=== PATIENT | male | born 1960 | race Caucasian/White ===

== ENCOUNTER 2022-08-07 17:43 | Inpatient (IN) | payer OTHER ==
[~2022-08-07] VITALS: Ht 180.3 cm; Wt 72.6 kg
[~2022-08-07 17:43] MED LIST: AMLO10TA PO; ATEN25TA7 PO; BUPR300T70 PO; CIPR500T4 PO; HYDR-3229 PO; HYDR-5191 PO; HYDR50CA1 PO; METR500T1 PO; QUET300T1 PO
[2022-08-07 17:52] VITALS: BP 199/95
--- NOTE | 2022-08-07 17:57 | NUR ---
PT W/C ASSISTED TO BED 10. REPORTED TO ROSA BUNCH.
[2022-08-07] MEDS ORDERED: LIDOCAINE/EPI MPF 1%1:200000 30 ML VIAL INJ ONE (18:55)
[2022-08-07] MEDS ORDERED: NACL 0.9% 1,000 ML IV ONE (18:55)
[2022-08-07] MEDS ORDERED: LORazepam 1 MG TAB PO ONE (18:55)
--- NOTE | 2022-08-07 19:19 | NUR ---
Report given to ALIVIA Montague for transfer of care.
[2022-08-07 19:27] LABS: BASOPHILS % (AUTO) 0.5 % (0.0-2.0); EOSINOPHILS % (AUTO) 0.1 % (0.0-4.0); HEMATOCRIT 31.5 % (36-52); HEMOGLOBIN 11.3 g/dL (12.0-18.0); LYMPHOCYTES # (AUTO) 0.4 K/uL (2.0-11.5); LYMPHOCYTES % (AUTO) 4.5 % (20.5-51.1); MEAN CORPUSCULAR HEMOGLOBIN 31 pg (27-31); MEAN CORPUSCULAR HGB CONC 36 g/dL (33-37); MEAN CORPUSCULAR VOLUME 88.2 fL (80-94); MONOCYTES # (AUTO) 0.5 K/uL (0.8-1.0); MONOCYTES % (AUTO) 5.8 % (1.7-9.3); NEUTROPHILS # (AUTO) 7.9 K/uL (1.8-7.7); NEUTROPHILS % (AUTO) 89.1 % (42.2-75.2); PLATELET COUNT (AUTO) 71 K/uL (140-450); RED BLOOD CELL COUNT(AUTO) 3.58 MIL/uL (4.20-6.10); WHITE BLOOD COUNT (AUTO) 8.9 K/uL (4.8-10.8)
--- NOTE | 2022-08-07 19:31 | NUR ---
PT TAKEN BY GLORIA TO [facility] FOR WAIT AND RETURN CT EXAM
[2022-08-07 19:46] LABS: PROTHROMBIN TIME 9.7 secs (10.8-13.4)
[2022-08-07 19:55] LABS: ALBUMIN 4.6 g/dL (3.4-5.0); ANION GAP 18.8 (8-16); ASPARTATE AMINOTRANSFERASE 60 U/L (15-37); CARBON DIOXIDE 28.3 mmol/L (21-32); CHLORIDE 90 mmol/L (98-107); CREATININE 2.4 mg/dL (0.6-1.3); GFR ARICAN-AMERICAN 35 mL/min (>90); GLUCOSE 137 mg/dL (74-106); POTASSIUM 3.1 mmol/L (3.5-5.1); SODIUM SERUM 134 mmol/L (136-145); TOTAL BILIRUBIN 1.7 mg/dL (0.0-1.0); UREA NITROGEN, BLOOD 34 mg/dL (7-18)
--- NOTE | 2022-08-07 21:47 | NUR ---
PT RETURN FROM [facility]
--- NOTE | 2022-08-07 21:54 | NUR ---
Patient back from CT, ER physician at bedside.
[2022-08-07] MEDS ORDERED: LORazepam 1 MG TAB ONE (21:58)
--- NOTE | 2022-08-07 22:30 | NUR ---
Patient lying in bed, A/Ox4, chest rise and fall symmetrical, no c/o pain or s/s of discomfort, patient on monitor.
[2022-08-07 22:52] LABS: CANNABINOID, URINE POSITIVE ng/mL (NEG <=50)
[2022-08-07 22:53] LABS: BARBITURATE, URINE NEGATIVE ng/ml (NEG <=200); BENZODIAZEPINE, URINE NEGATIVE ng/mL (NEG <=200); COCAINE, URINE POSITIVE ng/mL (NEG <=300); OPIATE, URINE NEGATIVE ng/mL (NEG <=2000); PHENCYCLIDINE SCREEN,URINE NEGATIVE ng/mL (NEG <=25)
--- NOTE | 2022-08-07 23:40 | NUR ---
Patient lying in bed, A/Ox4, chest rise and fall symmetrical, no c/o pain or s/s of discomfort, patient on monitor.
--- NOTE | 2022-08-07 23:57 | NUR ---
X-Ray at bedside.
[2022-08-08] MEDS ORDERED: LORazepam 2 MG/ML VIAL IVP PRN (01:10)
[2022-08-08] MEDS ORDERED: ACETAMINOPHEN 325 MG TAB PO PRN (01:10)
[2022-08-08] MEDS ORDERED: HYDROcodone/APAP 5/325 MG 1 TAB TAB PO PRN (01:10)
[2022-08-08] MEDS ORDERED: ONDANSETRON 4 MG/2 ML VIAL IVP PRN (01:10)
--- NOTE | 2022-08-08 01:30 | NUR ---
Patient lying in bed, A/Ox4, chest rise and fall symmetrical, no c/o pain or s/s of discomfort, patient on monitor.
[2022-08-08] MEDS: NACL 0.9% 1,000 ML IV SCH ×3 (01:47→18:53)
--- NOTE | 2022-08-08 01:58 | NUR ---
Dr. Burgos verbally informed via telephone of patient's last vital signs. Dr. Burgos verbalized understanding, order given for Amlodipine 10mg PO daily, readback complete.
[2022-08-08] MEDS ORDERED: amLODIPine 5 MG TAB PO SCH (02:20)
[2022-08-08] MEDS ORDERED: CLONIDINE HYDROCHLORIDE 0.1 MG TAB PO ONE (02:45)
--- NOTE | 2022-08-08 02:55 | NUR ---
Patient lying in bed, A/Ox4, chest rise and fall symmetrical, no c/o pain or s/s of discomfort, patient on monitor.
--- NOTE | 2022-08-08 04:20 | NUR ---
Patient lying in bed, A/Ox4, chest rise and fall symmetrical, no c/o pain or s/s of discomfort, patient on monitor.
--- NOTE | 2022-08-08 05:59 | NUR ---
Patient lying in bed, A/Ox4, chest rise and fall symmetrical, no c/o pain or s/s of discomfort, patient on monitor.
--- NOTE | 2022-08-08 06:20 | NUR ---
Patient lying in bed, A/Ox4, chest rise and fall symmetrical, no c/o pain or s/s of discomfort, patient on monitor.
--- NOTE | 2022-08-08 07:24 | NUR ---
Assumed care of pt at this time.
--- NOTE | 2022-08-08 07:27 | NUR ---
Pt report given to Marce BUNCH. Marce BUNCH verbalized understanding of report, no further questions.
--- NOTE | 2022-08-08 07:39 | NUR ---
Pt taken to Telemetry be 107 A on gurney and ACLS protocol on monitor with naeem Zuñiga. VSS. Pt given update on plan of care.
--- NOTE | 2022-08-08 07:45 | NUR ---
[facility]mi [facility].
--- NOTE | 2022-08-08 07:53 | NUR ---
Patient will be admitted to care of Dr Rivera. Admited to Telemetry. Will go to room 107 A. Belongings list completed. Report to Audrey BUNCH.
[2022-08-08 08:00] VITALS: BP 122/81
--- NOTE | 2022-08-08 08:30 | NUR ---
RECEIVED PATIENT FROM ED VIA [facility] AT 0750. VSS. AFEBRILE. RESPIRATIONS EVEN AND UNLABORED. BRUISING TO FACE AND RIGHT HIP NOTED. LACERATION TO FOREHEAD NOTED WELL. PATIENT HAD A FALL PRIOR TO ADMISSION. 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 PATIENT ALSO STATES HE IS UNABLE TO AMBULATE. SR ON TELE MONITOR. IV INTACT AND PATENT WITH NO REDNESS OR IRRITATION TO SITE. DENIES PAIN AT THIS TIME.ORIENTED TO ROOM AND CALL LIGHT SYSTEM. WILL CONTINUE TO MONITOR FOR SAFETY. Joel ROBBINS RN.
[2022-08-08] MEDS: amLODIPine 5 MG TAB PO SCH (08:41)
[2022-08-08] MEDS: ENOXAPARIN 40 MG/0.4 ML SYR SUBQ SCH (08:42)
[2022-08-08] MEDS ORDERED: POTASSIUM CHLORIDE 10 MEQ TABER PO SCH (10:12)
[2022-08-08 13:38] VITALS: BP 189/114
--- NOTE | 2022-08-08 13:39 | NUR ---
PATIENT HAS ELEVATED BLOOD PRESSURE OF 189/114 WITH HEART RATE OF 103. PATIENT IS ALSO COMPLAINING OF PAIN AT 9/10 IN HIS NECK AND RIGHT HIP. PATIENT WAS MEDICATED WITH NORCO APPROXIMATELY 1 HOUR AGO AND STATE PAIN HAS NOT BEEN RELIEVED. DR. PRINCE CALLED TO BE NOTIFIED. WAITING FOR CALL BACK FROM DR. PRINCE. Joel ROBBINS RN.
[2022-08-08] MEDS: MORPHINE SULFATE 4 MG/ML SYR IVP PRN ×2 (14:09→23:06)
[2022-08-08] MEDS: CLONIDINE HYDROCHLORIDE 0.1 MG TAB PO PRN (14:10)
--- NOTE | 2022-08-08 14:17 | NUR ---
CLONIDINE 0.1MG PO AND MORPHINE 4MG IV GIVEN ORDERED FOR ELEVATED BLOOD PRESSURE AND PAIN OF 06/19. Joel ROBBINS RN.
[2022-08-08 15:20] VITALS: BP 183/111
--- NOTE | 2022-08-08 15:22 | NUR ---
PATIENT BLOOD PRESSURE RECHECKED AFTER CLONIDINE 0.1MG PO AND IS 183/11 WITH HEART RATE OF 97. DR. PRINCE CALLED AND NOTIFIED. ORDERS GIVEN FOR LABETALOL 20MG IV EVERY 2 HOURS FOR SBP >160 PRN. WILL CARRY OUT NEW ORDERS. Joel ROBBINS RN.
[2022-08-08] MEDS ORDERED: LABETALOL 20 MG/4 ML VIAL IVP ONE (16:01)
[2022-08-08] MEDS: LABETALOL 100 MG/20 ML VIAL IV PRN (16:08)
[2022-08-08 16:47] VITALS: BP 127/76
[2022-08-08 20:00] VITALS: BP 148/95
[2022-08-08] MEDS: METOPROLOL 25 MG TAB PO SCH (23:03)
[2022-08-08] MEDS: QUEtiapine FUMARATE 100 MG TAB PO SCH (23:04)
[2022-08-08] MEDS: buPROPion 150 MG TABER PO SCH (23:05)
[2022-08-09] VITALS: BP 159/80
--- NOTE | 2022-08-09 00:35 | NUR ---
PATIENT AWAKE ALERT TEMP 96.9 ON ROOM AIR PATIENT IS A S/P FALL FALL IN STREET. PATIENT IS HOMLESS. ON ROOM AIR 98% SAT. HAS NS INFUSING AT 80 HOUR NS. PATIENT IS BED REST B/P 148/95 TOOK HIS B/P MEDS.PATIENT IS + FOR COCAINE PATIENT HAS NO TEETH PATIENT C/O OF PAIN IN LOWER BACK MEDICATED WITH MORPHINE 4 MG IVP 2306.PATIENT STATES PAIN 8.NO OTHER C/O AT THIS TIME.HAS A 20 GA UPPER RIGHT ARM.
[2022-08-09 04:00] VITALS: BP 150/80
[2022-08-09 06:57] LABS: BASOPHILS # (AUTO) 0.1 K/uL (0.00-0.22); BASOPHILS % (AUTO) 0.9 % (0.0-2.0); EOSINOPHILS # (AUTO) 0.1 K/uL (0-0.4); EOSINOPHILS % (AUTO) 1.5 % (0.0-4.0); HEMATOCRIT 22.3 % (36-52); HEMOGLOBIN 7.9 g/dL (12.0-18.0); LYMPHOCYTES # (AUTO) 0.9 K/uL (2.0-11.5); LYMPHOCYTES % (AUTO) 16.5 % (20.5-51.1); MEAN CORPUSCULAR HEMOGLOBIN 32 pg (27-31); MEAN CORPUSCULAR HGB CONC 35 g/dL (33-37); MONOCYTES # (AUTO) 0.5 K/uL (0.8-1.0); MONOCYTES % (AUTO) 8.6 % (1.7-9.3); NEUTROPHILS # (AUTO) 4.1 K/uL (1.8-7.7); NEUTROPHILS % (AUTO) 72.5 % (42.2-75.2); PLATELET COUNT (AUTO) 113 K/uL (140-450); RED BLOOD CELL COUNT(AUTO) 2.51 MIL/uL (4.20-6.10); RED CELL DISTRIBUTION WIDTH 13.3 % (11.6-13.7); WHITE BLOOD COUNT (AUTO) 5.7 K/uL (4.8-10.8)
--- NOTE | 2022-08-09 07:10 | NUR ---
RECIEVED REPORT FROM ENVIRONMENTAL CONFLICT MANAGER NURSE LETTY FOR CONTINUITY OF CARE. NO SIGNS OF DISTRESS OR LABORED BREATHING. PT IS A&OX1, ON RA STATING AT 96%. IV 20G RAC PATENT AND INTACT INFUSING NS @80ML/HR. PT HAS NO COMPLAINT OF PAIN AT THIS TIME. SKIN IS INTACT EXCEPT FOR A LACERATION ON FOREHEAD AND BRIDGE NOSE, BLACK EYES AND BRUISING ON R HIP AND BUTT CHEEK. LOW IN LOW POSITION, TWO SIDE RAILS UP, CALL LIGHT WITHIN REACH AND ALL SAFETY MEASURES MEET AT THIS TIME. WILL CONTINUE TO MONITOR.
[2022-08-09 07:45] LABS: ALBUMIN 2.9 g/dL (3.4-5.0); ANION GAP 12.9 (8-16); CARBON DIOXIDE 27.3 mmol/L (21-32); CREATININE 2.1 mg/dL (0.6-1.3); MAGNESIUM 2.3 mg/dL (1.8-2.4); POTASSIUM 3.2 mmol/L (3.5-5.1); TOTAL BILIRUBIN 0.6 mg/dL (0.0-1.0)
[2022-08-09 08:00] VITALS: BP 132/78
[2022-08-09] MEDS ORDERED: DEXTROSE 50% 50 ML SYR IVP PRN (08:20)
[2022-08-09] MEDS ORDERED: INSULIN LISPRO SLIDING SCALE 100 UNITS/ML VIAL SUBQ PRN (08:20)
[2022-08-09] MEDS ORDERED: POTASSIUM CHLORIDE 10 MEQ TABER PO SCH (09:00)
[2022-08-09] MEDS: amLODIPine 5 MG TAB PO SCH (09:00)
[2022-08-09] MEDS: METOPROLOL 25 MG TAB PO SCH (09:00)
[2022-08-09] MEDS: buPROPion 150 MG TABER PO SCH ×2 (09:00→20:28)
[2022-08-09] MEDS: ASPIRIN 81 MG TAB.CHEW PO SCH (09:00)
[2022-08-09] MEDS: ENOXAPARIN 40 MG/0.4 ML SYR SUBQ SCH (09:21)
[2022-08-09] MEDS ORDERED: LOSARTAN 25 MG TAB PO SCH (10:15)
--- NOTE | 2022-08-09 10:20 | NUR ---
PATIENT HAS BEEN SCREENED AND CATEGORIZED MODERATE NUTRITION RISK. PATIENT WILL BE SEEN WITHIN 3-5 DAYS OF ADMISSION. 08/08/22-08/13/22 REVIEWED BY HARLEEN VALENZUELA RD
--- NOTE | 2022-08-09 11:17 | NUR ---
P.T. NOTES P.T. EVAL COMPLETED; REFER TO EVAL FOR DETAILS.
[2022-08-09] MEDS ORDERED: BLOOD GLUCOSE MONITORING 1 DEV DEV FS SCH (11:30)
[2022-08-09 12:00] VITALS: BP_SYST 132; BP_DIAS 78; BP_DIAS 88
[2022-08-09 14:21] LABS: THYROID STIMULATING HORMONE 2.64 uIU/mL (0.34-3.74)
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
[2022-08-09 16:00] VITALS: BP 155/95
--- NOTE | 2022-08-09 19:25 | NUR ---
ENDORSED PT TO MATCHER LEATHER PARTS NURSE CLARA FOR CONTINUITY OF CARE.
--- NOTE | 2022-08-09 19:26 | NUR ---
RECD. RESTING IN BED, AWAKE, A/OX2. RESPIRATION EVEN AND UNLABORED. IV SALINE LOCK AT THE RIGHT AC G20, PATENT AND INTACT. NOTED MULTIPLE BRUISES IN THE BODY DUE TO FALLS, HEMATOMA ON THE NOSE AND FOREHEAD. SAFETY MEASURES ENFORCED. BED IN THE LOWEST POSITION, SIDE RAILS UP. DENIES PAIN 0/10.
[2022-08-09 20:00] VITALS: BP 159/98
[2022-08-09] MEDS: carvediloL 12.5 MG TAB PO SCH (20:28)
--- NOTE | 2022-08-09 20:28 | NUR ---
TRYING TO GET OUT OF BED, CLEANSED AND DIAPER PUT ON AND NEW GOWN. SCHEDULED MEDICATIONS ADMINISTERED WITH APPLE SAUCE, TOLERATED WELL.
[2022-08-09] MEDS: QUEtiapine FUMARATE 100 MG TAB PO SCH (20:29)
[2022-08-09] MEDS: CLONIDINE HYDROCHLORIDE 0.1 MG TAB PO PRN (23:16)
--- NOTE | 2022-08-09 23:16 | NUR ---
BP - 181/129, HR - 87, MEDICATED WITH CATAPRES PER MD ORDER.
[2022-08-10] VITALS: BP 163/122
--- NOTE | 2022-08-10 | NUR ---
Patient's Plan of Care was discussed and reviewed with YANELY HARTMANN
--- NOTE | 2022-08-10 00:30 | NUR ---
BP CHECKED - 163/122, HR -85. WILL GIVE ANOTHER MED PER MD ORDER.
[2022-08-10] MEDS: LABETALOL 100 MG/20 ML VIAL IV PRN ×3 (01:59→17:19)
--- NOTE | 2022-08-10 01:59 | NUR ---
BP CHECKED - 170/109, HR - 81. MEDICATED WITH LABETALOL PER MD ORDER BY CHARGE NURSE
--- NOTE | 2022-08-10 02:43 | NUR ---
BP CHECKED - 135/62, HR - 87. SLEEPING COMFORTABLY IN BED. RESPIRATION EVEN AND UNLABORED.
--- NOTE | 2022-08-10 03:30 | NUR ---
DIAPER CHANGED, REPOSITION IN BED FOR COMFORT.
[2022-08-10 04:00] VITALS: BP 157/95
--- NOTE | 2022-08-10 05:45 | NUR ---
TRYING TO GET OUT OF BED BY PUTTING BLE OUT OF THE BED. REPOSITIONED BACK IN BED.
--- NOTE | 2022-08-10 07:00 | NUR ---
CONDITION REMAIN STABLE. WILL ENDORSED TO AM SHIFT NURSE FOR CONTINUITY OF CARE.
--- NOTE | 2022-08-10 07:30 | NUR ---
RECEIVED REPORT FROM NIGHTSHIFT NURSECLARA. PT AWAKE AND ALERT. NO SOB OR RESPIRATORY DISTRESS. ON RA. PUREED DIET. RAC #20 SL, DRESSING C/D/I. PT INCONTINENT. NEEDS ALL MET AT THIS TIME. ALL ITEMS WITHIN REACH. ALL SAFETY MEASURES IN PLACE.
[2022-08-10 07:54] LABS: BASOPHILS % (AUTO) 0.5 % (0.0-2.0); EOSINOPHILS # (AUTO) 0.1 K/uL (0-0.4); EOSINOPHILS % (AUTO) 0.9 % (0.0-4.0); HEMATOCRIT 25.6 % (36-52); LYMPHOCYTES # (AUTO) 0.6 K/uL (2.0-11.5); MEAN CORPUSCULAR HEMOGLOBIN 32 pg (27-31); MEAN CORPUSCULAR HGB CONC 35 g/dL (33-37); MEAN CORPUSCULAR VOLUME 89.5 fL (80-94); MONOCYTES # (AUTO) 0.7 K/uL (0.8-1.0); MONOCYTES % (AUTO) 8.1 % (1.7-9.3); NEUTROPHILS # (AUTO) 6.7 K/uL (1.8-7.7); NEUTROPHILS % (AUTO) 82.5 % (42.2-75.2); PLATELET COUNT (AUTO) 138 K/uL (140-450); RED BLOOD CELL COUNT(AUTO) 2.86 MIL/uL (4.20-6.10); RED CELL DISTRIBUTION WIDTH 13.1 % (11.6-13.7); WHITE BLOOD COUNT (AUTO) 8.1 K/uL (4.8-10.8)
[2022-08-10 08:00] VITALS: BP 170/103
[2022-08-10 08:29] LABS: ALBUMIN 3.3 g/dL (3.4-5.0); ANION GAP 11.5 (8-16); CARBON DIOXIDE 28.8 mmol/L (21-32); CREATININE 2.3 mg/dL (0.6-1.3); POTASSIUM 3.3 mmol/L (3.5-5.1); TOTAL BILIRUBIN 0.8 mg/dL (0.0-1.0)
[2022-08-10] MEDS: ENOXAPARIN 40 MG/0.4 ML SYR SUBQ SCH (08:45)
[2022-08-10] MEDS: amLODIPine 5 MG TAB PO SCH (08:46)
[2022-08-10] MEDS: ASPIRIN 81 MG TAB.CHEW PO SCH (08:46)
[2022-08-10] MEDS: carvediloL 12.5 MG TAB PO SCH ×2 (08:46→20:36)
[2022-08-10] MEDS: buPROPion 150 MG TABER PO SCH ×2 (08:46→20:37)
--- NOTE | 2022-08-10 09:45 | NUR ---
BP RECHECK 139/89, HR 60. ATTEMPTED TO FEED PT X2. PT ABLE TO TAKE FEW BITES OF FOOD WITHOUT SIGNS OF ASPIRATION. ABLE TO STATE NAME AND . NO SLURRING NOTED. DENIES PAIN. NEEDS ALL MET AT THIS TIME. ALL SAFETY MEASURES IN PLACE.
[2022-08-10 12:00] VITALS: BP 131/90
[2022-08-10] MEDS ORDERED: POTASSIUM CHLORIDE 10 MEQ TABER PO SCH (13:30)
[2022-08-10 16:00] VITALS: BP 172/99
[2022-08-10] MEDS: MORPHINE SULFATE 4 MG/ML SYR IVP PRN (18:04)
--- NOTE | 2022-08-10 19:29 | NUR ---
REPORT GIVEN TO NIGHTSGAFT NURSEELVIRA FOR CONTINUITY OF CARE.
--- NOTE | 2022-08-10 19:30 | NUR ---
RECEIVED REPORT FROM MORNING SHIFT NURSE. PT IS AOX2, BEDREST, ABLE TO VERBALIZE NEEDS AND ABLE TO FOLLOW COMMANDS. PT IS ON ROOM AIR AND ON PUREE DIET. PT HAS BEDSIDE URINAL AND HAS IV ON RIGHT AC G20 SALINE LOCK. PT HAS LEFT EYE CLOSED BRUISED, RIGHT EYE BRUISE, HEMATOMA ON FOREHEAD AND NOSE LACERATION. NO COMPLAIN OF PAIN AT THIS TIME. NO S/S OF DISTRESS NOTED. ALL SAFETY MEASURES IMPLEMENTED. BED IN LOW POSITION, BED WHEELS ON LOCKED AND CALL LIGHT WITHIN REACH.
[2022-08-10 20:00] VITALS: BP 159/95
[2022-08-10] MEDS: QUEtiapine FUMARATE 100 MG TAB PO SCH (20:36)
--- NOTE | 2022-08-10 20:37 | NUR ---
ALL SCHEDULED AND PRESCRIBED MEDICATION WAS GIVEN TO PT PER MD ORDER. ALL SAFETY MEASURES IMPLEMENTED. BED IN LOW POSITION, BED WHEELS ON LOCKED AND CALL LIGHT WITHIN REACH.
--- NOTE | 2022-08-10 22:00 | NUR ---
PT WAS GIVEN BLANKET PER PT REQUEST. ALL SAFETY MEASURES IMPLEMENTED. BED IN LOW POSITION, BED WHEELS ON LOCKED AND CALL LIGHT WITHIN REACH.
--- NOTE | 2022-08-11 | NUR ---
PT IS SLEEPING. CHEST RISE AND FALL WAS NOTED. NO S/S OF RESPIRATORY DISTRESS NOTED. ALL SAFETY MEASURES IMPLEMENTED. BED IN LOW POSITION, BED WHEELS ON LOCKED AND CALL LIGHT WITHIN REACH.
--- NOTE | 2022-08-11 02:00 | NUR ---
CHECKED THE PT, STILL SLEEPING. CHEST RISE AND FALL WAS NOTED. NO S/S OF RESPIRATORY DISTRESS NOTED. ALL SAFETY MEASURES IMPLEMENTED. BED IN LOW POSITION, BED WHEELS ON LOCKED AND CALL LIGHT WITHIN REACH.
--- NOTE | 2022-08-11 04:00 | NUR ---
PT V; BP-147/81, P-70, T-97.4, RR-19, O2-100. PT DENIES PAIN AT THIS TIME. NO S/S OF RESP. DISTRESS NOTED. ALL SAFETY MEASURES IMPLEMENTED. BED IN LOW POSITION, BED WHEELS ON LOCKED AND CALL LIGHT WITHIN REACH.
[2022-08-11 06:54] LABS: BASOPHILS # (AUTO) 0.1 K/uL (0.00-0.22); BASOPHILS % (AUTO) 0.9 % (0.0-2.0); EOSINOPHILS # (AUTO) 0.2 K/uL (0-0.4); EOSINOPHILS % (AUTO) 3.5 % (0.0-4.0); HEMATOCRIT 25.4 % (36-52); HEMOGLOBIN 8.9 g/dL (12.0-18.0); LYMPHOCYTES # (AUTO) 0.9 K/uL (2.0-11.5); LYMPHOCYTES % (AUTO) 15.7 % (20.5-51.1); MEAN CORPUSCULAR HEMOGLOBIN 32 pg (27-31); MEAN CORPUSCULAR HGB CONC 35 g/dL (33-37); MEAN CORPUSCULAR VOLUME 90.9 fL (80-94); MONOCYTES # (AUTO) 0.5 K/uL (0.8-1.0); MONOCYTES % (AUTO) 9.6 % (1.7-9.3); NEUTROPHILS % (AUTO) 70.3 % (42.2-75.2); PLATELET COUNT (AUTO) 145 K/uL (140-450); RED BLOOD CELL COUNT(AUTO) 2.79 MIL/uL (4.20-6.10); RED CELL DISTRIBUTION WIDTH 12.8 % (11.6-13.7); WHITE BLOOD COUNT (AUTO) 5.6 K/uL (4.8-10.8)
[2022-08-11 07:03] LABS: ALBUMIN 2.9 g/dL (3.4-5.0); ANION GAP 12.1 (8-16); CARBON DIOXIDE 27.7 mmol/L (21-32); CREATININE 2.4 mg/dL (0.6-1.3); POTASSIUM 3.8 mmol/L (3.5-5.1); TOTAL BILIRUBIN 0.6 mg/dL (0.0-1.0)
--- NOTE | 2022-08-11 07:21 | NUR ---
PT IS STABLE. ENDORSED PT TO MORNING SHIFT NURSE FOR CONTINUITY OF CARE.
--- NOTE | 2022-08-11 07:38 | NUR ---
RECEIVED PT FROM SUPPLIES PACKER NURSE FOR CONTINUITY OF CARE. PT IN BED SLEEPING. EVEN CHEST RISE AND FALL. RESPIRATIONS EVEN AND UNLABORED. NO DISTRESS NOTED. CALL LIGHT WITHIN REACH. ALL SAFETY PRECAUTIONS IN PLACE.
[2022-08-11 08:00] VITALS: BP 172/96
[2022-08-11] MEDS: amLODIPine 5 MG TAB PO SCH (08:13)
[2022-08-11] MEDS: ASPIRIN 81 MG TAB.CHEW PO SCH (08:13)
[2022-08-11] MEDS: buPROPion 150 MG TABER PO SCH (08:14)
[2022-08-11] MEDS: carvediloL 12.5 MG TAB PO SCH (08:14)
--- NOTE | 2022-08-11 08:19 | NUR ---
ALL SCHEDULED MORNING MEDS ADMINISTERED. PT TOLERATING WELL.
--- NOTE | 2022-08-11 10:00 | NUR ---
PATIENT ASLEEP NO DISTRESS NOTED CALL LIGHT WITH IN EASY REACH.
--- NOTE | 2022-08-11 12:45 | NUR ---
SEEN AND EXAMINED BY DR. BRADFORD AND DISCUSS PROGNOSIS AND PLAN OF CARE FOR HIM.
--- NOTE | 2022-08-11 13:20 | NUR ---
DC PLANNING: PATIENT GOT ACCEPTED AT [facility] CAN GO TO ROOM 613B ACCEPTING DR BROWN. # TO GIVE REPORT [phone] . RECEIVED THE AUTH FROM [facility] AT [facility] [id number] FOR TRANSPORT [id number] ARRANGED TRANSPORT WITH [facility] TRANSPORT MECHANIC ASSISTANT TIME 3 PM NOTIFIED MILLER DO CM TO FOLLOW
[2022-08-11] MEDS ORDERED: hydrALAZINE 25 MG TAB PO SCH (14:25)
--- NOTE | 2022-08-11 14:31 | NUR ---
WENT INTO PT ROOM TO NOTIFY OF DR ORDER FOR DISCHARGE AND TRANSFER TO [facility]. PT STATES "IS IT SO BAD FOR A MAN TO TAKE CONTROL OF HIS OWN BODY?, ITS NOT UP TO THE DR TO SEND ME TO A USP." PT REFUSED TO SIGN DISCHARGE PAPERS AND TRYING TO CALL HIS BROTHER IN [place] TO PICK HIM UP.
--- NOTE | 2022-08-11 14:57 | NUR ---
PT CALLED NURSE INTO ROOM TO TALK TO HIS GIRLFRIEND. GIRLFRIEND REQUESTING PT NOT BE DISCHARGED UNTIL 5:30 PM BECAUSE SHE IS ON HER WAY BACK FROM [place]. PT REFUSE TO SIGN DISCHARGE PAPERS. INFORMED MEDICAL AIDE DIANA OF PT REFUSAL TO SIGN DISCHARGE AND REFUSAL TO [facility]. INFORMED DR BRADFORD REGARDING PT REFUSAL, WAITING FOR RESPONSE.
[2022-08-11 16:00] VITALS: BP 174/106
[2022-08-11] MEDS: LABETALOL 100 MG/20 ML VIAL IV PRN (17:30)
--- NOTE | 2022-08-11 18:00 | NUR ---
NURSE WAS ASKED IF SHE HAD DISCHARGED PT BECAUSE HE WALKED HIMSELF OUT TO THE FRONT LOBBY. NURSE WENT OUT TO LOBBY FOUND PT IN WHEELCHAIR WITH WAGE ADJUSTER STAFF. PT REFUSED TO GO BACK TO HIS ROOM, REFUSED TO SIGN AMA. BROTHER WAS SITTING IN LOBBY WAITING FOR HIM, BROUGHT HIM CHANGE OF CLOTHES. PT NAME BAND AND IV REMOVED IN LOBBY. PT WENT INTO RESTROOM TO CHANGE OUT OF HOSPITAL GOWN, BROTHER WENT IN RESTROOM TO ASSIST HIM CHANGE CLOTHES. REEL ASSEMBLER ASSIST PT TO THE CAR.
== END 2022-08-11 18:06 | DRG 384 ==
LOC: MED 17:43 → MTU 08-08 01:11 → OBSVTOIN 08-08 09:33
PROVIDERS: ADMIT Internal Medicine; ATTEND Internal Medicine
PROC: 09QKXZZ Repair Nasal Mucosa and Soft Tissue, External Approach (ICD-10-PCS; principal; 2022-08-07)
DX: S00.93XA Contusion of unspecified part of head, initial encounter (principal); N17.0 Acute kidney failure with tubular necrosis; I21.A1 Myocardial infarction type 2; G93.41 Metabolic encephalopathy; E46 Unspecified protein-calorie malnutrition; S09.90XA Unspecified injury of head, initial encounter; D69.6 Thrombocytopenia, unspecified; E86.0 Dehydration; B19.20 Unspecified viral hepatitis C without hepatic coma; W18.39XA Other fall on same level, initial encounter; R77.8 Other specified abnormalities of plasma proteins; F14.129 Cocaine abuse with intoxication, unspecified; F19.10 Other psychoactive substance abuse, uncomplicated; K21.9 Gastro-esophageal reflux disease without esophagitis; Z20.822 Contact with and (suspected) exposure to COVID-19; F31.9 Bipolar disorder, unspecified; G89.4 Chronic pain syndrome; S00.81XA Abrasion of other part of head, initial encounter; E87.6 Hypokalemia; I12.9 Hypertensive chronic kidney disease with stage 1 through stage 4 chronic kidney disease, or unspecified chronic kidney disease; N18.9 Chronic kidney disease, unspecified; Z91.81 History of falling; Y93.89 Activity, other specified; Y92.89 Other specified places as the place of occurrence of the external cause; Y99.8 Other external cause status; Z91.14 Patient's other noncompliance with medication regimen; Z59.00 Homelessness unspecified; Z68.22 Body mass index [BMI] 22.0-22.9, adult
CPT/HCPCS: 36415; 73502; 80053; 80305; 83540; 83735; 84443; 84484; 85025; 85610; 85730; 87081; 93005; 96360; 97110; 97112; 97163-GP; 97530; 99285; G0482; J1650; J2060; J2270; J3490; J7030; Q0092

== ENCOUNTER 2022-09-01 20:36 | Observation (INO) | payer OTHER ==
[~2022-09-01] VITALS: Ht 177.8 cm; Wt 62.1 kg
[~2022-09-01 20:36] MED LIST changes: -CIPR500T4 PO; -HYDR-3229 PO; -HYDR-5191 PO; -HYDR50CA1 PO; -METR500T1 PO
[2022-09-01 20:43] VITALS: BP 244/155
[2022-09-01] MEDS ORDERED: LORazepam 2 MG/ML VIAL IM ONE (20:45)
--- NOTE | 2022-09-01 21:05 | NUR ---
medicated per orders . tolerated well
--- NOTE | 2022-09-01 21:10 | NUR ---
61/M BIBA FROM [facility] WITH C/C OF ALOC. PT IS AWAKE, CONFUSED. PER EMS PT'S FRIEND FOUND PT SLUMPED OVER IN BED. DENIES FALL. EMS STATES PT IS ACTIVE METH USER. BP ELEVATED AND ERMD AWARE. PLACED IN BED AND LOG COOKER. BED LOW AND LOCKED. ALL NEEDS MET. HX:HTN NKA
[2022-09-01] MEDS ORDERED: LABETALOL 20 MG/4 ML VIAL IVP ONE ×2 (21:55→23:20)
--- NOTE | 2022-09-01 22:18 | NUR ---
New IV establish L Hand. 09/01/22 tolerated well.
--- NOTE | 2022-09-01 23:00 | NUR ---
CHANGED AND REPOSITIONED PATIENT. PROVIDED ELIN CARE. TOLERATED WELL. NEW LINEN PROVIDED. PATIENT BED LOW AND LOCKED. GREG SIDE RAILS UP FOR SAFETY. ALL NEEDS MET.
[2022-09-01] MEDS ORDERED: LORazepam 2 MG/ML VIAL IVP ONE (23:20)
--- NOTE | 2022-09-01 23:24 | NUR ---
B/P 165/144 ER MD VERMA made aware. stated to hold labetalol at this time.
--- NOTE | 2022-09-01 23:24 | NUR ---
LAB AT BEDSIDE
[2022-09-01 23:33] LABS: BASOPHILS # (AUTO) 0.1 K/uL (0.00-0.22); BASOPHILS % (AUTO) 0.5 % (0.0-2.0); EOSINOPHILS % (AUTO) 0.1 % (0.0-4.0); HEMATOCRIT 35.2 % (36-52); HEMOGLOBIN 12.2 g/dL (12.0-18.0); LYMPHOCYTES # (AUTO) 0.6 K/uL (2.0-11.5); LYMPHOCYTES % (AUTO) 5.8 % (20.5-51.1); MEAN CORPUSCULAR HEMOGLOBIN 31 pg (27-31); MEAN CORPUSCULAR HGB CONC 35 g/dL (33-37); MEAN CORPUSCULAR VOLUME 89.5 fL (80-94); MONOCYTES # (AUTO) 0.9 K/uL (0.8-1.0); NEUTROPHILS # (AUTO) 9.1 K/uL (1.8-7.7); NEUTROPHILS % (AUTO) 85.6 % (42.2-75.2); PLATELET COUNT (AUTO) 107 K/uL (140-450); RED BLOOD CELL COUNT(AUTO) 3.93 MIL/uL (4.20-6.10); RED CELL DISTRIBUTION WIDTH 14.1 % (11.6-13.7); WHITE BLOOD COUNT (AUTO) 10.6 K/uL (4.8-10.8)
[2022-09-01 23:54] LABS: ANION GAP 8.1 (8-16); CARBON DIOXIDE 30.9 mmol/L (21-32); CREATININE 2.2 mg/dL (0.6-1.3)
--- NOTE | 2022-09-02 00:32 | NUR ---
PATIENT BP 239/158. ERMD SIN AWARE. STATED TO GIVE LABELTALOL ORDERED.
[2022-09-02] MEDS ORDERED: LORazepam 2 MG/ML VIAL ONE (00:33)
[2022-09-02] MEDS ORDERED: LABETALOL 20 MG/4 ML VIAL IVP ONE (00:33)
--- NOTE | 2022-09-02 01:30 | NUR ---
CHANGED AND REPOSITIONED PATIENT. PROVIDED ELIN CARE. TOLERATED WELL. NEW LINEN PROVIDED. PATIENT BED LOW AND LOCKED. GREG SIDE RAILS UP FOR SAFETY. ALL NEEDS MET.
[2022-09-02 02:36] LABS: BARBITURATE, URINE NEGATIVE ng/ml (NEG <=200); BENZODIAZEPINE, URINE POSITIVE ng/mL (NEG <=200); CANNABINOID, URINE POSITIVE ng/mL (NEG <=50); COCAINE, URINE POSITIVE ng/mL (NEG <=300); OPIATE, URINE NEGATIVE ng/mL (NEG <=2000); PHENCYCLIDINE SCREEN,URINE NEGATIVE ng/mL (NEG <=25)
--- NOTE | 2022-09-02 03:35 | NUR ---
PATIENT CONTINUES WITH A BP 206/134. ERMD AWARE.
--- NOTE | 2022-09-02 03:37 | NUR ---
CHANGED AND REPOSITIONED PATIENT. PROVIDED ELIN CARE. TOLERATED WELL. NEW LINEN PROVIDED. PATIENT BED LOW AND LOCKED. GREG SIDE RAILS UP FOR SAFETY. ALL NEEDS MET.
[2022-09-02] MEDS ORDERED: hydrALAZINE 20 MG/ML VIAL IVP ONE (04:00)
--- NOTE | 2022-09-02 06:03 | NUR ---
SWAB COLLECTED AND WALKED TO LAB
--- NOTE | 2022-09-02 07:15 | NUR ---
REPORT GIVEN TO ALIVIA BLAKELY. TRANSFER OF CARE.
--- NOTE | 2022-09-02 07:15 | NUR ---
REPORT RECEIVED FROM BRY BUNCH, TRANSFER OF CARE AT THIS TIME, RECEIVED PT IN BED IN APPROPRIATE CLOTHING, RESPIRATIONS EVEN AND UNLABORED
--- NOTE | 2022-09-02 07:33 | NUR ---
PT IS NOW AWAKE AND ALERT, ANSWERING QUESTIONS, PT STATES THAT HE'S UNABLE TO GET UP D/T CHRONIC PAIN
--- NOTE | 2022-09-02 09:14 | NUR ---
PT TRANSFERRED TO CHAIR C
--- NOTE | 2022-09-02 10:14 | NUR ---
PT ASSISTED TO BATHROOM
--- NOTE | 2022-09-02 10:39 | NUR ---
PT IN CHAIR A TRYING TO GET OUT AND SAYING THAT HE "HAS TO GO TO HIS BROTHER"
[2022-09-02] MEDS ORDERED: ZOLPIDEM 5 MG TAB PO PRN (11:00)
[2022-09-02] MEDS ORDERED: ONDANSETRON 4 MG/2 ML VIAL IVP PRN (11:00)
[2022-09-02] MEDS ORDERED: KCL 20 MEQ/WATER INJ PREMIX 200 ML IV PRN (11:00)
[2022-09-02] MEDS ORDERED: MAG SULF 2000 MG/WATER PREMIX 50 ML IV PRN (11:00)
[2022-09-02] MEDS ORDERED: ACETAMINOPHEN 325 MG TAB PO PRN (11:00)
[2022-09-02] MEDS ORDERED: HYDROcodone/APAP 5/325 MG 1 TAB TAB PO PRN (11:00)
[2022-09-02] MEDS ORDERED: POTASSIUM CHLORIDE 10 MEQ TABER PO PRN (11:00)
[2022-09-02] MEDS ORDERED: LORazepam 2 MG/ML VIAL IVP PRN (11:05)
[2022-09-02] MEDS: NACL 0.9% 1,000 ML IV SCH ×2 (11:29→22:49)
[2022-09-02] MEDS: FOLIC ACID 1 MG TAB PO SCH (11:34)
--- NOTE | 2022-09-02 11:35 | NUR ---
reconcile meds unable to abtain s/p ALOC
--- NOTE | 2022-09-02 11:40 | NUR ---
Patient will be admitted to care of DR CARDONA. Admited to TELEMETRY. Will go to room 111B. Belongings list completed. Report to ROSA BUNCH.
--- NOTE | 2022-09-02 11:45 | NUR ---
RECIEVED REPORT FROM ER NURSE. PT STABLE ON TRANSPORT AND TRANSFERED TO BED. COMMERCIAL LITIGATION PARALEGAL PLACED ON PT. PT IS A&OX2, SKIN INTACT, ON ROOM AIR, UNSTEADY WHEN AMBULATING, AND IS ON A REGULAR DIET. PT IS HAVING HIGH BP IN ER AND WAS 168/123 ON ADMISSION. GAVE MEDICATION AND WILL REASSESS IN AN HOUR. MRSA SWAB COLLECTED.
[2022-09-02] MEDS ORDERED: amLODIPine 5 MG TAB PO SCH (12:00)
[2022-09-02] MEDS ORDERED: diazePAM 5 MG TAB PO SCH (12:00)
[2022-09-02] MEDS ORDERED: cloNIDine-TTS1 0.1 MG/24 HR 1 EA PATCH TD SCH (12:00)
[2022-09-02] MEDS ORDERED: hydrALAZINE 20 MG/ML VIAL IVP PRN (15:25)
[2022-09-02 16:00] VITALS: BP 186/125
[2022-09-02] MEDS: CLONIDINE HYDROCHLORIDE 0.1 MG TAB PO SCH ×2 (16:25→20:35)
[2022-09-02] MEDS ORDERED: carvediloL 12.5 MG TAB PO SCH (16:45)
--- NOTE | 2022-09-02 19:10 | NUR ---
ENDORSED PT TO STONE MILL OPERATOR NURSE
--- NOTE | 2022-09-02 19:59 | NUR ---
REPORT RECEIVED FROM ELIJAH RN. PATIENT RECEIVED IN NO DISTRESS, SLEEPING. WOKE PATIENT UP TO TAKE HIS VITAL SIGNS. WILL CONTINUE TO MONITOR PATIENT.
[2022-09-02] MEDS: QUEtiapine FUMARATE 100 MG TAB PO SCH (20:35)
[2022-09-02] MEDS: carvediloL 12.5 MG TAB PO SCH (20:35)
[2022-09-02 22:02] VITALS: BP 156/96
--- NOTE | 2022-09-02 22:50 | NUR ---
PATIENT SLEEPING. NO SIGNS OF DISTRESS OR PAIN. WILL CONTINUE TO MONITOR.
--- NOTE | 2022-09-03 03:36 | NUR ---
GET THE REPORT FROM MORNING NURSE ESTRADA, PATIENT IS LYING ON BED BY HIS SIDE, PATIENT IS CONFUSED, NO ANY RESPIRATORY DISTRESS NOTED AT THIS TIME, ALL FALL PRECAUTION MEASURE ARE IN PLACE, CALL LIGHT IS WITHIN THE REACH, WILL CONTINUE TO MONITOR PATIENT.
[2022-09-03 04:00] VITALS: BP 141/78
--- NOTE | 2022-09-03 04:29 | NUR ---
PATIENT IS LYING ON BED, NO ANY COMPLAIN OF PAIN OR SHORTNESS OF BREATH AT THIS TIME, VITAL SIGN IS WITHIN THE NORMAL RANGE, ALL SCHEDULE MEDICATION IS GIVEN PER DOCTOR ORDER, CALL LIGHT IS WITHIN THE REACH, WILL CONTINUE TO MONITOR PATIENT.
[2022-09-03] MEDS: CLONIDINE HYDROCHLORIDE 0.1 MG TAB PO SCH ×3 (04:46→21:18)
--- NOTE | 2022-09-03 06:58 | NUR ---
GAVE THE REPORT TO MORNING NURSE ROSA FOR CONTINUOS OF CARE, PATIENT IS STABLE.
[2022-09-03] MEDS: NACL 0.9% 1,000 ML IV SCH (06:59)
--- NOTE | 2022-09-03 07:10 | NUR ---
RECIEVED REPORT FROM RN EMPLOYEE HEALTH NURSE FOR CONTINUITY OF CARE. NO SIGNS OF DISTRESS OR LABORED BREATHING AT THIS TIME. PT IS A&OX2, SKIN INTACT, ON ROOM AIR, UNSTEADY WHEN AMBULATING, AND IS ON A REGULAR DIET. PT HAS A 22G IV IN HIS L WRIST THAT IS PATENT AND INFUSING NS @80ML/HR. TWO SIDE RAILS UP, BED IN LOW POSITION, CALL LIGHT WITHIN REACH AND ALL SAFETY MEASURES IN PLACE AT THIS TIME. WILL CONTINUE TO MONITOR.
[2022-09-03 07:31] LABS: BASOPHILS # (AUTO) 0.1 K/uL (0.00-0.22); BASOPHILS % (AUTO) 1.3 % (0.0-2.0); EOSINOPHILS # (AUTO) 0.2 K/uL (0-0.4); EOSINOPHILS % (AUTO) 2.9 % (0.0-4.0); HEMATOCRIT 33.2 % (36-52); HEMOGLOBIN 11.3 g/dL (12.0-18.0); LYMPHOCYTES # (AUTO) 1.6 K/uL (2.0-11.5); LYMPHOCYTES % (AUTO) 27.4 % (20.5-51.1); MEAN CORPUSCULAR HEMOGLOBIN 32 pg (27-31); MEAN CORPUSCULAR HGB CONC 34 g/dL (33-37); MEAN CORPUSCULAR VOLUME 92.6 fL (80-94); MONOCYTES # (AUTO) 0.7 K/uL (0.8-1.0); MONOCYTES % (AUTO) 11.1 % (1.7-9.3); NEUTROPHILS # (AUTO) 3.5 K/uL (1.8-7.7); NEUTROPHILS % (AUTO) 57.3 % (42.2-75.2); PLATELET COUNT (AUTO) 88 K/uL (140-450); RED BLOOD CELL COUNT(AUTO) 3.59 MIL/uL (4.20-6.10); RED CELL DISTRIBUTION WIDTH 14.4 % (11.6-13.7)
[2022-09-03 07:48] LABS: ANION GAP 12.3 (8-16); CARBON DIOXIDE 26.4 mmol/L (21-32); CREATININE 3.1 mg/dL (0.6-1.3); POTASSIUM 3.7 mmol/L (3.5-5.1)
[2022-09-03 08:00] VITALS: BP 159/89
--- NOTE | 2022-09-03 08:18 | NUR ---
PATIENT HAS BEEN SCREENED AND CATEGORIZED LOW NUTRITION RISK. PATIENT WILL BE SEEN WITHIN 7 DAYS OF ADMISSION. 09/02/22-09/09/[address]
[2022-09-03] MEDS: FOLIC ACID 1 MG TAB PO SCH (09:00)
[2022-09-03] MEDS: carvediloL 12.5 MG TAB PO SCH ×2 (09:00→21:19)
[2022-09-03] MEDS: DOCUSATE SODIUM 100 MG GELCAP PO SCH (09:00)
[2022-09-03] MEDS: MULTIVITAMIN 1 TAB PO SCH (09:00)
[2022-09-03 12:00] VITALS: BP 158/107
[2022-09-03 16:00] VITALS: BP 132/91
--- NOTE | 2022-09-03 19:30 | NUR ---
RECEIVED PT FROM AM NURSE FOR CONTINUITY OF CARE. PT IS STABLE
[2022-09-03 20:00] VITALS: BP 128/70
[2022-09-03] MEDS: QUEtiapine FUMARATE 100 MG TAB PO SCH (21:20)
[2022-09-04] VITALS: BP 151/94
[2022-09-04] MEDS: NACL 0.9% 1,000 ML IV SCH (00:30)
--- NOTE | 2022-09-04 02:00 | NUR ---
PATIENT ASLEEP ,NO S/SX OF DISTRESS NOTED
[2022-09-04 04:00] VITALS: BP 163/98
[2022-09-04] MEDS: CLONIDINE HYDROCHLORIDE 0.1 MG TAB PO SCH (05:15)
--- NOTE | 2022-09-04 07:30 | NUR ---
RECEIVED PATIENT FROM DOG FOOD DOUGH MIXER NURSE FOR CONTINUITY OF CARE. PT IS AOX3, ABLE TO MAKE NEEDS KNOWN. RESPIRATIONS EVEN AND UNLABORED ON ROOM AIR AND NO DISTRESS NOTED. SKIN IS WARM, DRY,AND INTACT. IV SITE ON L WRIST 22G INFUSING FLUIDS ORDERED. DENIES PAIN AT THE MOMENT. PLAN OF CARE DISCUSSED. SAFETY PRECAUTIONS IN PLACE CALL LIGHT WITHIN REACH. WILL CONTINUE TO MONITOR.
[2022-09-04 08:00] VITALS: BP 138/85
[2022-09-04 09:09] LABS: ANION GAP 12.7 (8-16); CARBON DIOXIDE 28.3 mmol/L (21-32)
[2022-09-04 09:11] LABS: BASOPHILS % (AUTO) 0.7 % (0.0-2.0); EOSINOPHILS # (AUTO) 0.2 K/uL (0-0.4); EOSINOPHILS % (AUTO) 4.3 % (0.0-4.0); HEMATOCRIT 30.3 % (36-52); HEMOGLOBIN 10.2 g/dL (12.0-18.0); LYMPHOCYTES # (AUTO) 1.1 K/uL (2.0-11.5); LYMPHOCYTES % (AUTO) 21.3 % (20.5-51.1); MEAN CORPUSCULAR HEMOGLOBIN 31 pg (27-31); MEAN CORPUSCULAR HGB CONC 34 g/dL (33-37); MEAN CORPUSCULAR VOLUME 91.8 fL (80-94); MONOCYTES # (AUTO) 0.5 K/uL (0.8-1.0); MONOCYTES % (AUTO) 8.9 % (1.7-9.3); NEUTROPHILS # (AUTO) 3.4 K/uL (1.8-7.7); NEUTROPHILS % (AUTO) 64.8 % (42.2-75.2); PLATELET COUNT (AUTO) 115 K/uL (140-450); RED CELL DISTRIBUTION WIDTH 14.5 % (11.6-13.7); WHITE BLOOD COUNT (AUTO) 5.2 K/uL (4.8-10.8)
--- NOTE | 2022-09-04 09:45 | NUR ---
ALL SCHEDULED MEDS GIVEN. PT IS STABLE. NO DISTRESS NOTED. WILL CONTINUE TO MONITOR.
[2022-09-04] MEDS: DOCUSATE SODIUM 100 MG GELCAP PO SCH (10:22)
[2022-09-04] MEDS: FOLIC ACID 1 MG TAB PO SCH (10:22)
[2022-09-04] MEDS: MULTIVITAMIN 1 TAB PO SCH (10:23)
[2022-09-04] MEDS: carvediloL 12.5 MG TAB PO SCH (10:23)
[2022-09-04] MEDS ORDERED: NACL 0.45% 1,000 ML IV SCH (10:25)
[2022-09-04 12:00] VITALS: BP 156/98
--- NOTE | 2022-09-04 12:15 | NUR ---
CHECKED ON PATIENT. PT IS STABLE. NO DISTRESS NOTED. WILL CONTINUE TO MONITOR.
[2022-09-04 16:00] VITALS: BP 120/86
--- NOTE | 2022-09-04 16:00 | NUR ---
OBTAINED URINE SAMPLE AND SENT TO LABS
[2022-09-04 17:29] LABS: APPEARANCE,URINE CLEAR (CLEAR); BILIRUBIN,URINE NEGATIVE (NEGATIVE); BLOOD, URINE NEGATIVE (NEGATIVE); COLOR,URINE YELLOW (YELLOW); LEUKOCYTE ESTERASE ,URINE NEGATIVE (NEGATIVE); NITRITE, URINE NEGATIVE (NEGATIVE); PH,URINE 5.5 (5.0-9.0); UGLUCOSE NEGATIVE (NEGATIVE)
--- NOTE | 2022-09-04 17:35 | NUR ---
PATIENT IS INSISTING LEAVING AMA. EDUCATED THE RISKS OF LEAVING AMA. PATIENT STILL INSISTED ON LEAVING AMA. INFORMED MD REGARDING THIS SITUATION AND IS AWARE.
--- NOTE | 2022-09-04 17:45 | NUR ---
PATIENT SIGNED AMA FORMED AND ESCORTED TO FRONT LOBBY.
[2022-09-04 17:58] LABS: RBC,URINE 0-5 /HPF (0-5); TRICHOMONAS,URINE None Seen /HPF (None Seen); WBC,URINE 0-5 /HPF (0-5); YEAST,URINE None Seen /HPF (None Seen)
== END 2022-09-04 17:55 | disposition left against medical advice (07) ==
LOC: MED 20:36 → MTU 09-02 11:02 → INTOOBSV 09-02 11:02 → MTU 09-04 10:39
PROVIDERS: ADMIT Internal Medicine; ATTEND Internal Medicine
DX: G93.41 Metabolic encephalopathy (principal); Z20.822 Contact with and (suspected) exposure to COVID-19; F10.239 Alcohol dependence with withdrawal, unspecified; B19.20 Unspecified viral hepatitis C without hepatic coma; I16.0 Hypertensive urgency; T40.601A Poisoning by unspecified narcotics, accidental (unintentional), initial encounter; K85.90 Acute pancreatitis without necrosis or infection, unspecified; E87.0 Hyperosmolality and hypernatremia; I12.9 Hypertensive chronic kidney disease with stage 1 through stage 4 chronic kidney disease, or unspecified chronic kidney disease; N18.9 Chronic kidney disease, unspecified; D63.1 Anemia in chronic kidney disease; N17.9 Acute kidney failure, unspecified; D69.6 Thrombocytopenia, unspecified; F32.A Depression, unspecified; G89.4 Chronic pain syndrome; K21.9 Gastro-esophageal reflux disease without esophagitis; F14.10 Cocaine abuse, uncomplicated; F12.10 Cannabis abuse, uncomplicated; Z79.899 Other long term (current) drug therapy
CPT/HCPCS: 36415; 70450; 71045; 73630; 76770; 80048; 80053; 80305; 81001; 83735; 83935; 84300; 85025; 87081; 87205; 87426; 90715; 93005; 96361; 96372; 96374; 96375; 96376; 99285; G0378; G0482; J0360; J2060; J3480; J3490; Q0092